=== PATIENT | male | born 1945 | race Caucasian/White ===

== ENCOUNTER 2020-05-25 21:10 | Emergency (ER) | payer MEDICARE, SELFPAY ==
[2020-05-25] VITALS (7 sets, daily range): BP systolic 122–163; BP diastolic 87–100; PULSE 58–66; RESP 18–20; TEMP 36.9; O2SAT 94–98
--- NOTE | 2020-05-25 21:28 | XRR_ITS ---
PROCEDURE INFORMATION: Exam: XR Chest, 1 View Exam date and time: 05/25/2020 10:01 PM Age: 74 years old Clinical indication: Pain; Chest pressure; Additional info: Cp TECHNIQUE: Imaging protocol: XR of the chest Views: 1 view. COMPARISON: No relevant prior studies available. FINDINGS: Lungs: Unremarkable. No consolidation. Pleural space: Unremarkable. No pleural effusion. No pneumothorax. Heart/Mediastinum: There is some calcified left AP window lymph nodes in keeping with old granulomatous disease.. No cardiomegaly. Bones/joints: Unremarkable. XR/XR chest 1V portable [id number] IMPRESSION: No acute findings.
--- NOTE | 2020-05-25 21:28 | ECG_ITS ---
[facility] Test Date: 2020-05-25 Pat Name: Dwight Bolden Department: Room: Gender: Male Security Clerk: : 1945 Requested By: Dean Cardoso Order Number: [id number] Sunny MD: Nestor Lynn M.D. Measurements Intervals [place] Rate: 64 P: 11 [place]: 145 QRS: 11 QRSD: 82 T: 120 QT: 362 QTc: 375 Interpretive Statements SINUS RHYTHM NONSPECIFIC ST & T-WAVE ABNORMALITY No previous ECG available for comparison Electronically Signed On 05-26-2020 20:26:19 CDT by Nestor Lynn M.D. [email or web address] hospital[facility]com[facility].[employer]/store/NU/[id number] f
[2020-05-25 21:58] LABS: Basophils # 0.1 10^3/uL (0.0-0.1); Eosinophils # 0.3 10^3/uL (0.0-0.8); Eosinophils % 3.4 %; Hematocrit 44.7 % (42.0-52.0); Lymphocytes # 1.8 10^3/uL (0.8-4.8); Lymphocytes % 22.2 %; Mean Corpuscular HGB Conc 33.6 g/dL (30.0-36.0); Mean Corpuscular Hemoglobin 29.8 pg (28.0-34.0); Mean Corpuscular Volume 88.7 fL (80-94); Mean Platelet Volume 9.3 fL (7.4-10.4); Monocytes # 0.9 10^3/uL (0.2-0.9); Monocytes % 10.6 %; Neutrophils # 5.09 10^3/uL (1.8-7.7); Neutrophils % 62.6 %; Nucleated Red Blood Cells % 0 %; Platelet Count 299 10^3/cmm (130-400); Red Blood Count 5.04 10^6/uL (4.1-5.3); White Blood Count 8.1 10^3/uL (4.0-10.0)
[2020-05-25] MEDS: ondansetron 2 mg/ML SDV 2 mL 4 MG IVP (22:12)
[2020-05-25] MEDS: aspirin 81 mg Chew Tablet 324 MG PO (22:12)
[2020-05-25] MEDS: lidocaine 2% viscous 15 ML, aluminum-mag hydrox-simethicon 30 ML, sucralfate oral liq 1 GM PO (22:12)
[2020-05-25 22:19] LABS: Troponin(5th) Baseline 8 ng/L (0-15)
[2020-05-25 22:26] LABS: Alanine Aminotransferase 23 U/L (0-41); Albumin Level 4.7 g/dL (3.5-5.2); Alkaline Phosphatase 153 IU/L (40-130); Anion Gap 17.2 (5-19); Aspartate Amino Transferase 27 U/L (0-40); Blood Urea Nitrogen 17 mg/dL (8-23); Calcium 9.5 mg/dL (8.5-10.5); Carbon Dioxide 23 mmol/L (22-29); Chloride 103 mmol/L (98-107); Globulin 1.9 g/dL (1.3-4.6); Glucose 118 mg/dL (65-115); NT Pro B Type Natriuretic Pept 5 pg/mL (0-125); Osmolality Calculated 291 mOsm/kg (285-295); Potassium 4.2 mmol/L (3.5-5.1); Sodium 139 mmol/L (136-145); Total Bilirubin 0.2 mg/dL (0.15-1.2); Total Protein 6.6 g/dL (6.6-8.7)
[2020-05-25 22:56] LABS: Add Urine Culture? No; Add Urine Microscopic? YES; Bacteria Urine TRACE /hpf; Bilirubin Urine Neg (Negative); Blood Urine 2+ (Negative); Glucose Urine UA Norm (Normal); Ketones Urine Negative (Negative); Leukocyte Esterase Urine Negative (Negative); Nitrate Urine Negative (Negative); Protein Urine Neg (Negative); Urine Appearance Clear (CLEAR); Urine Color Yellow (Yellow); Urobilinogen Urine Norm (Negative); pH Urine 6.5 (5-7)
--- NOTE | 2020-05-25 22:59 | W.ED.CHESTPA ---
HPI - Chest Pain General: Chief Complaint: Chest Pain Stated Complaint: SOB Time Seen by Provider: 05/25/20 21:26 History of Present Illness: HPI narrative: 74-year-old male with no prior history of coronary disease. He presents with chest discomfort, that started sometime after eating some fried fish. He notes his symptoms have improved since arriving at the hospital, but he still feeling some tightness in his mid chest. He states that he feels like he cannot get a deep breath, but is not overly short of breath. He has had no fever, no cough. He was mildly nauseated, and this is passed. No vomiting. MD complaint: chest discomfort Onset (ago): hour(s) Timing of current episode: constant and still present (But improving) Prior episodes: No Onset: during rest Pain location: substernal Pain radiation: none Quality: tightness and heaviness Relieving factors: nothing Exacerbating factors: nothing Associated symptoms: Reports dyspnea and nausea; Deny abdominal pain, diaphoresis, fever(s), palpitations or vomiting Review of Systems Const: Denies: fever(s) or diaphoresis Eyes: Denies: change in vision ENMT: Reports: post nasal drip; Denies: odynophagia, swelling of lips/tongue, change in hearing, epistaxis or sinus pain Card: Reports: chest pain; Denies: palpitations, irregular heart rhythm, swelling of feet/ankles, dyspnea on exertion or orthopnea Resp: Reports: dyspnea; Denies: productive cough, non-productive cough or wheezing GI: Reports: nausea; Denies: abdominal pain or vomiting : Denies: difficulty urinating, dysuria or hematuria Musc: Denies: neck pain or back pain Skin/Breast: Denies: pruritus or erythema Neuro: Denies: headache(s), dizziness, vertigo or confusion Psych: Denies: anxiety Physical Exam Const: GENERAL APPEARANCE: well developed ORIENTATION/CONSCIOUSNESS: Yes oriented to person, Yes oriented to place and Yes oriented to time HENMT: COMMON NORMALS: normocephalic, external ears normal and Normal external nose present HEAD & SCALP: normocephalic FACE & SINUS: normal facial exam NOSE: Normal external nose present and No nasal discharge present EXTERNAL EAR: Yes external ears normal Eye: COMMON NORMALS: Equal, round and reactive pupils present, EOMs intact bilaterally and conjunctivae normal EYELID: eyelids normal CONJUNCTIVA: Yes conjunctivae normal PUPIL: Yes Equal, round and reactive pupils present Neck/C-Spine: GENERAL: No tracheal deviation Chest: COMMONS NORMALS: normal inspection of the chest CHEST: No tenderness Resp: COMMON NORMALS: clear to auscultation bilaterally EFFORT & INSPECTION: No tachypneic, No respiratory distress, No retractions, No uses accessory muscles and No tracheal deviation AUSCULTATION: clear to auscultation bilaterally, no rhonchi, no wheezes and lung sounds not diminished Cardio: COMMON NORMALS: regular rate and regular rhythm RATE: regular rate RHYTHM: regular rhythm HEART SOUNDS: no murmurs PERIPHERAL PULSES: radial pulses present GI: INSPECTION: No abdominal distension AUSCULTATION: No Hyperactive bowel sounds present and No Hypoactive bowel sounds present PALPATION: No Guarding due to palpation present (GI) and No Rigid due to palpation PERCUSSION: no dullness to percussion and no tympanic to percussion Neuro: SENSORIUM/ORIENTATION: Yes oriented to person, Yes oriented to place and Yes oriented to time Psych: COMMON NORMALS: mental status grossly normal Skin: COMMON NORMALS: no rashes or lesions noted GENERAL SKIN EXAM: no rashes or lesions noted Course Reevaluation(s): Reevaluation #1: Reevaluation, the patient's symptoms have completely resolved. He like to go home. His second troponin is not been drawn yet. His EKG has been done. It shows sinus bradycardia with a normal axis, and no acute ST changes. The rate is 56. With resolution of his symptoms, he would like to go home. He was warned of the risk of going home before obtaining the second troponin, which includes missing an acute coronary syndrome, and the potential for serious harm or by doing so. He understands and agrees. Perfectly capable of making that decision. Will allow him home. Time: 23:35 Vital Signs: Vital signs: Vital Signs Temperature 98.4 F 05/25/20 21:14 Pulse Rate 59 L 05/25/20 22:30 Respiratory Rate 18 05/25/20 22:30 Blood Pressure 128/89 05/25/20 22:30 Pulse Oximetry 94 05/25/20 22:30 MDM - Chest Pain MDM Narrative: Medical decision making narrative: 74-year-old male presenting with chest discomfort that is now resolved. His EKG shows a sinus rhythm with a rate of 65. His axis is normal. There are no acute ST changes. His chest x-ray is negative. His labs are normal. His first troponin is 8. GI cocktail was equivocal, as his symptoms had resolved by the time he got it. The patient was offered COVID-19 testing, and refused. Lab Data: Labs: Lab Results 05/25/20 05/25/20 05/25/20 Range/Units 21:50 21:50 21:50 WBC 8.1 (4.0-10.0) 10^3/ uL RBC 5.04 (4.1-5.3) 10^6/u L Hgb 15.0 (11.7-16.6) g/dL Hct 44.7 (42.0-52.0) % MCV 88.7 (80-94) fL MCH 29.8 (28.0-34.0) pg MCHC 33.6 (30.0-36.0) g/dL RDW 12.0 L (12.1-15.1) % Plt Count 299 (130-400) 10^3/c mm MPV 9.3 (7.4-10.4) fL Neut % (Auto) 62.6 % Lymph % (Auto) 22.2 % [place] % (Auto) 10.6 % Eos % (Auto) 3.4 % Baso % (Auto) 1.0 % Neut # (Auto) 5.09 (1.8-7.7) 10^3/u L Lymph # (Auto) 1.8 (0.8-4.8) 10^3/u L [place] # (Auto) 0.9 (0.2-0.9) 10^3/u L Eos # (Auto) 0.3 (0.0-0.8) 10^3/u L Baso # (Auto) 0.1 (0.0-0.1) 10^3/u L Nucleated RBC % (a uto) 0 % Nucleated RBCs # 0.0 /100WBC Sodium 139 (136-145) mmol/L Potassium 4.2 (3.5-5.1) mmol/L Chloride 103 (98-107) mmol/L Carbon Dioxide 23 (22-29) mmol/L Anion Gap 17.2 (5-19) BUN 17 (8-23) mg/dL Creatinine 1.1 (0.7-1.2) mg/dL GFR Calculation Not Reportable Glucose 118 H (65-115) mg/dL Calculated Osmolal ity 291 (285-295) mOsm/k g Calcium 9.5 (8.5-10.5) mg/dL Total Bilirubin 0.2 (0.15-1.2) mg/dL AST 27 (0-40) U/L ALT 23 (0-41) U/L Alkaline Phosphata se 153 H (40-130) IU/L Troponin T Baselin e 8 (0-15) ng/L NT-Pro-B Natriuret Pep 5 (0-125) pg/mL Total Protein 6.6 (6.6-8.7) g/dL Albumin 4.7 (3.5-5.2) g/dL Globulin 1.9 (1.3-4.6) g/dL Urine Color (Yellow) Urine Appearance (CLEAR) Urine pH (5-7) Ur Specific Gravit y (1.005-1.030) Urine Protein (Negative) Urine Glucose (UA) (Normal) Urine Ketones (Negative) Urine Blood (Negative) Urine Nitrate (Negative) Urine Bilirubin (Negative) Urine Urobilinogen (Negative) mg/dL Ur Leukocyte Daja ase (Negative) Urine RBC (0-2) /hpf Urine WBC (0-5) /hpf Ur Squamous Epith Cells (0-5) /hpf Amorphous Sediment Urine Bacteria (NONE) /hpf 1003/20 Range/Units 22:20 WBC (4.0-10.0) 10^3/ uL RBC (4.1-5.3) 10^6/u L Hgb (11.7-16.6) g/dL Hct (42.0-52.0) % MCV (80-94) fL MCH (28.0-34.0) pg MCHC (30.0-36.0) g/dL RDW (12.1-15.1) % Plt Count (130-400) 10^3/c mm MPV (7.4-10.4) fL Neut % (Auto) % Lymph % (Auto) % [place] % (Auto) % Eos % (Auto) % Baso % (Auto) % Neut # (Auto) (1.8-7.7) 10^3/u L Lymph # (Auto) (0.8-4.8) 10^3/u L [place] # (Auto) (0.2-0.9) 10^3/u L Eos # (Auto) (0.0-0.8) 10^3/u L Baso # (Auto) (0.0-0.1) 10^3/u L Nucleated RBC % (a uto) % Nucleated RBCs # /100WBC Sodium (136-145) mmol/L Potassium (3.5-5.1) mmol/L Chloride (98-107) mmol/L Carbon Dioxide (22-29) mmol/L Anion Gap (5-19) BUN (8-23) mg/dL Creatinine (0.7-1.2) mg/dL GFR Calculation Glucose (65-115) mg/dL Calculated Osmolal ity (285-295) mOsm/k g Calcium (8.5-10.5) mg/dL Total Bilirubin (0.15-1.2) mg/dL AST (0-40) U/L ALT (0-41) U/L Alkaline Phosphata se (40-130) IU/L Troponin T Baselin e (0-15) ng/L NT-Pro-B Natriuret Pep (0-125) pg/mL Total Protein (6.6-8.7) g/dL Albumin (3.5-5.2) g/dL Globulin (1.3-4.6) g/dL Urine Color Yellow (Yellow) Urine Appearance Clear (CLEAR) Urine pH 6.5 (5-7) Ur Specific Gravit y 1.010 (1.005-1.030) Urine Protein Neg (Negative) Urine Glucose (UA) Norm (Normal) Urine Ketones Negative (Negative) Urine Blood 2+ H (Negative) Urine Nitrate Negative (Negative) Urine Bilirubin Neg (Negative) Urine Urobilinogen Norm (Negative) mg/dL Ur Leukocyte Daja ase Negative (Negative) Urine RBC 5-10 H (0-2) /hpf Urine WBC None (0-5) /hpf Ur Squamous Epith Cells None (0-5) /hpf Amorphous Sediment Not Reportable Urine Bacteria Trace (NONE) /hpf Discharge Plan Discharge Patient Disposition: Home Clinical Impression: Chest pain due to GERD Chest pain Qualifiers: Chest pain type: unspecified Qualified Code(s): R07.9 - Chest pain, unspecified Condition: Stable Discharge Orders: Discharge Order (Routine); Ordered 05/25/20 Ordered By: Dean Mora Referrals: Smiley Aburto FNP [Primary Care Provider] - 4-7 days Discharge Diet: Advance as tolerated Discharge Activity: Increase activity as tolerated Patient Instructions: Chest Pain (ED), Esophageal Spasm (ED) Activity Restrictions/Additional Instructions: Return to the emergency department for return of chest pain, development of shortness of breath, fever greater than 100, cough, other concerning symptoms. Coding Level of Care Code ED Staff Electronic Warfare Officer for Chg Fwd Exam Comprehensive
--- NOTE | 2020-05-25 23:14 | PC.NURSE ---
during med adm, pt states he will refuse COVID swab screening. notified
--- NOTE | 2020-05-25 23:28 | ECG_ITS ---
[facility] Test Date: 2020-05-25 Pat Name: Dwight Bolden Department: Room: Gender: Male Clinical Genetics Laboratory Chief: : 1945 Requested By: Dean Cardoso Order Number: [id number] Sunny MD: Nestor Lynn M.D. Measurements Intervals [place] Rate: 56 P: 22 [place]: 148 QRS: 26 QRSD: 89 T: 141 QT: 407 QTc: 394 Interpretive Statements SINUS BRADYCARDIA NONSPECIFIC ST & T-WAVE ABNORMALITY Compared to ECG 05/25/2020 21:19:38 Sinus rhythm no longer present T-wave abnormality still present Electronically Signed On 05-27-2020 17:39:58 CDT by Nestor Lynn M.D. [email or web address].[employer]/store/NU/[id number] f
--- NOTE | 2020-05-26 00:01 | PC.NURSE ---
i agree with this assessment
== END 2020-05-26 00:01 | disposition home or self-care (01) ==
PROVIDERS: Emergency Provider Emergency Medicine; PCP Nurse Practitioner Family
DX: K21.9 Gastro-esophageal reflux disease without esophagitis (principal)
CPT/HCPCS: 12345; 71045; 80053; 81001; 83880; 84484; 85025; 93005; 96374; 99283; 99284; J2405

== ENCOUNTER 2023-12-05 19:19 | Emergency (ER) | payer MEDICARE, SELFPAY ==
[2023-12-05] VITALS (8 sets, daily range): BP systolic 135–171; BP diastolic 86–92; PULSE 63–72; RESP 16–24; TEMP 36.8; O2SAT 93–95; BMI 30.9
--- NOTE | 2023-12-05 19:30 | XRR_ITS ---
PROCEDURE INFORMATION: Exam: XR Chest Exam date and time: 12/05/2023 7:37 PM Age: 78 years old Clinical indication: Shortness of breath TECHNIQUE: Imaging protocol: Radiologic exam of the chest. Views: 1 view. COMPARISON: CR XR chest 1V portable [id number] 05/25/2020 9:52 PM FINDINGS: Lungs: No focal consolidation. Pleural spaces: No evidence of pneumothorax. No evidence of pleural effusion. Heart/Mediastinum: Cardiomediastinal silhouette is within normal limits. Bones/joints: No evidence of acute osseous abnormality. XR/XR chest 1V [id number] IMPRESSION: 1. No acute cardiopulmonary abnormality.
--- NOTE | 2023-12-05 19:32 | ECG_ITS ---
[facility] Test Date: 2023-12-05 Pat Name: Dwight Bolden Department: Room: Gender: Male Client Services Manager: : 1945 Requested By: Mary Ellen Ambrose Order Number: [id number] Sunny MD: Andrade Ferguson M.D. Measurements Intervals [place] Rate: 72 P: 24 AL: 149 QRS: 34 QRSD: 86 T: 120 QT: 375 QTc: 413 Interpretive Statements SINUS RHYTHM WITH SINUS ARRHYTHMIA NONSPECIFIC ST & T-WAVE ABNORMALITY Compared to ECG 05/25/2020 23:26:07 Sinus bradycardia no longer present T-wave abnormality still present Electronically Signed On 12-05-2023 20:55:27 CDT by Andrade Ferguson M.D. [email or web address] [email or web address] hospital.[employer]/store/NU/[id number] f
--- NOTE | 2023-12-05 19:46 | ED_ITS ---
HPI - Chest Pain 2 General: Chief Complaint: Chest Pain Stated Complaint: SOB Time Seen by Provider: 12/05/23 19:27 History of Present Illness: 78-year-old man who says he has no major medical problems who presents the emergency room with chest tightness and shortness of breath. He says this started just after he had been working downstairs with some chemicals. He thinks this may have started it. He feels better now. He has had no recent cough or fevers. No coronary history. Review of Systems 2 Narrative: Constitutional symptoms: Negative except as documented in HPI. Skin symptoms: Negative except as documented in HPI. Eye symptoms: Negative except as documented in HPI. ENMT symptoms: Negative except as documented in HPI. Respiratory symptoms: Negative except as documented in HPI. Cardiovascular symptoms: Negative except as documented in HPI. Gastrointestinal symptoms: Negative except as documented in HPI. Genitourinary symptoms: Negative except as documented in HPI. Musculoskeletal symptoms: Negative except as documented in HPI. Neurologic symptoms: Negative except as documented in HPI. Psychiatric symptoms: Negative except as documented in HPI. Endocrine symptoms: Negative except as documented in HPI. Physical Exam 2 Narrative: EXAM NARRATIVE: General: Alert, no acute distress. Skin: Warm, dry. Head: Normocephalic, atraumatic. Neck: Supple, trachea midline. Eye: Extraocular movements are intact. Ears, nose, mouth and throat: mucosa moist. Cardiovascular: Regular, Normal peripheral perfusion. Respiratory: Lungs are clear to auscultation, respirations are non-labored, breath sounds are equal, Symmetrical chest wall expansion. Gastrointestinal: Soft, Nontender, Non distended, Normal bowel sounds. Musculoskeletal: Normal ROM, no deformity. Neurological: Alert and oriented, No focal neurological deficit observed. Psychiatric: Cooperative, appropriate mood & affect. Course 2 Vital Signs: Vital signs: Vital Signs Temperature 98.2 F 12/05/23 19:27 Pulse Rate 70 12/05/23 20:02 Respiratory Rate 17 12/05/23 20:02 Blood Pressure 135/86 12/05/23 20:02 Pulse Oximetry 94 12/05/23 20:02 Oxygen Delivery Me thod Room Air 12/05/23 20:02 MDM - Chest Pain Medical Decision Making Differential diagnosis for patient with chest pain includes but is not limited to and based on the above HPI, review of systems and physical exam: Pneumonia. unstable angina. angina. Acute coronary syndrome / [place]. Pulmonary embolism. Costochondritis / musculoskeletal. Pleurisy. Pericarditis. Esophageal spasm. Pancreatis. Cholecystitis. Workup: Lab work, chest X-ray and EKG ordered to evaluate, rule in and rule out above pathologies. Lab Review: Laboratory results were reviewed and interpreted by myself the emergency room physician. Patient has been completely asymptomatic. Lab work and troponin is negative. Chest x-ray: No acute process. No infiltrate. No pneumothorax. No cardiomegaly. This was reviewed and interpreted by myself the ER physician. EKG: Time 1931 rate 72 normal sinus rhythm, No ST-T changes, no ectopy, normal NV & QRS intervals, This was reviewed and interpreted by myself the ER physician at 1933. I reviewed the patient's medical record. Reexamination: Patient says he feels much better. He thinks it was just secondary to exposure to the chemicals. I agree you may have had a little reactive airway event. No increased work of breathing. No altered mental status. Lab Data 12/05/23 19:50 12/05/23 19:50 Radiology Impressions Chest X-Ray 12/05/23 19:30 IMPRESSION: 1. No acute cardiopulmonary abnormality. Laboratory Results WBC 8.93 10^3/uL (3.29-11.43) 12/05/23 19:50 RBC 4.88 10^6/uL (3.85-5.65) 12/05/23 19:50 Hgb 14.80 g/dL (11.27-16.99) 12/05/23 19:50 Hct 42.5 % (37-53) 12/05/23 19:50 MCV 87.1 fl (82-101) 12/05/23 19:50 MCH 30.3 pg (27-33) 12/05/23 19:50 MCHC 34.8 g/dL (30-55) 12/05/23 19:50 RDW 12.3 % (12.1-15.1) 12/05/23 19:50 Plt Count 289 10^3/cmm (157-399) 12/05/23 19:50 MPV 9.2 fL (7.4-10.4) 12/05/23 19:50 Neut % (Auto) 66.4 % 12/05/23 19:50 Lymph % (Auto) 22.2 % 12/05/23 19:50 [place] % (Auto) 9.1 % 12/05/23 19:50 Eos % (Auto) 1.3 % 12/05/23 19:50 Baso % (Auto) 0.7 % 12/05/23 19:50 Neut # (Auto) 5.93 10^3/uL (1.8-7.7) 12/05/23 19:50 Lymph # (Auto) 2.0 10^3/uL (0.8-4.8) 12/05/23 19:50 [place] # (Auto) 0.8 10^3/uL (0.2-0.9) 12/05/23 19:50 Eos # (Auto) 0.1 10^3/uL (0.0-0.8) 12/05/23 19:50 Baso # (Auto) 0.1 10^3/uL (0.0-0.1) 12/05/23 19:50 Nucleated RBC % (auto) 0 % 12/05/23 19:50 Nucleated RBCs # 0.0 /100WBC 12/05/23 19:50 Sodium 139 mmol/L (136-145) 12/05/23 19:50 Potassium 4.3 mmol/L (3.5-5.1) 12/05/23 19:50 Chloride 104 mmol/L (98-107) 12/05/23 19:50 Carbon Dioxide 24 mmol/L (22-29) 12/05/23 19:50 Anion Gap 15.3 (5-19) 12/05/23 19:50 BUN 13 mg/dL (8-23) 12/05/23 19:50 Creatinine 1.0 mg/dL (0.7-1.2) 12/05/23 19:50 GFR Calculation Not Reportable 12/05/23 19:50 Glucose 106 mg/dL (65-115) 12/05/23 19:50 Calculated Osmolality 289 mOsm/kg (285-295) 12/05/23 19:50 Calcium 9.7 mg/dL (8.5-10.5) 12/05/23 19:50 Troponin T Baseline 12 ng/L (0-15) 12/05/23 19:50 Influenza Type A Ag negative (Negative) 12/05/23 20:12 Influenza Type B Ag negative (Negative) 12/05/23 20:12 SARS-CoV-2 Ag (Rapid) negative (Negative) 12/05/23 20:12 All radiology interpretation(s) finalized by discharge Other Data Assessment and plan: - Discharged home - Discussed plan with patient. Answered any questions. - Evaluation and treatment of this problem were appropriate in the emergency setting. Discharge Plan Discharge Patient Disposition: Home Clinical Impression: Atypical chest pain Condition: Stable Discharge Orders: Discharge ED (Routine); Ordered 12/05/23 Ordered By: Mary Ellen Funk Discharge Diet: Usual diet Discharge Activity: Resume usual activity Patient Instructions: Opioid Safety, Pain Management Coding Level of Care Code ED Remote Ruby On Rails Developer for Preston Shaver
[2023-12-05 20:14] LABS: Basophils # 0.1 10^3/uL (0.0-0.1); Basophils % 0.7 %; Eosinophils # 0.1 10^3/uL (0.0-0.8); Eosinophils % 1.3 %; Hematocrit 42.5 % (37-53); Lymphocytes % 22.2 %; Mean Corpuscular HGB Conc 34.8 g/dL (30-55); Mean Corpuscular Hemoglobin 30.3 pg (27-33); Mean Corpuscular Volume 87.1 fl (82-101); Mean Platelet Volume 9.2 fL (7.4-10.4); Monocytes # 0.8 10^3/uL (0.2-0.9); Monocytes % 9.1 %; Neutrophils # 5.93 10^3/uL (1.8-7.7); Neutrophils % 66.4 %; Nucleated Red Blood Cells % 0 %; Platelet Count 289 10^3/cmm (157-399); Red Blood Count 4.88 10^6/uL (3.85-5.65); Red Cell Distribution Width 12.3 % (12.1-15.1); White Blood Count 8.93 10^3/uL (3.29-11.43)
[2023-12-05 20:31] LABS: Anion Gap 15.3 (5-19); Blood Urea Nitrogen 13 mg/dL (8-23); Calcium 9.7 mg/dL (8.5-10.5); Carbon Dioxide 24 mmol/L (22-29); Chloride 104 mmol/L (98-107); Creatinine Clr Calc Pharmacy 60.6034; Glucose 106 mg/dL (65-115); Osmolality Calculated 289 mOsm/kg (285-295); Potassium 4.3 mmol/L (3.5-5.1); Sodium 139 mmol/L (136-145)
[2023-12-05 20:32] LABS: Troponin(5th) Baseline 12 ng/L (0-15)
[2023-12-05 20:33] LABS: Influenza A by IFA negative (Negative); Influenza B by IFA negative (Negative); SARS Covid-2 Antigen negative (Negative)
--- NOTE | 2023-12-05 21:31 | ECG_ITS ---
[facility] Test Date: 2023-12-06 Pat Name: Dwight Bolden Department: Room: Gender: Male Bilingual Patient Support Caseworker: : 1945 Requested By: Mary Ellen Ambrose Order Number: [id number] Sunny MD: Andrade Ferguson M.D. Measurements Intervals [place] Rate: 70 P: 23 [place]: 150 QRS: 27 QRSD: 86 T: 120 QT: 353 QTc: 381 Interpretive Statements SINUS RHYTHM ST DEVIATION AND MODERATE T-WAVE ABNORMALITY, CONSIDER LATERAL ISCHEMIA [-0.1+ mV T-WAVE IN I/aVL/V5/V6] Compared to ECG 12/05/2023 19:32:17 Possible ischemia now present Sinus arrhythmia no longer present T-wave abnormality still present Electronically Signed On 12-06-2023 19:34:01 CDT by Andrade Ferguson M.D. [id number]
== END 2023-12-05 21:35 | disposition home or self-care (01) ==
PROVIDERS: Emergency Provider Emergency Medicine
DX: R07.89 Other chest pain (principal); Z11.52 Encounter for screening for COVID-19
CPT/HCPCS: 71045; 80048; 84484; 85025; 87426; 87804; 93005; 99285

== ENCOUNTER 2023-12-06 00:06 | Emergency (ER) | payer MEDICARE, SELFPAY ==
[2023-12-06] VITALS (9 sets, daily range): BP systolic 128–175; BP diastolic 80–96; PULSE 53–72; RESP 13–19; TEMP 36.8; O2SAT 92–96; BMI 30.9
--- NOTE | 2023-12-06 02:08 | W.ED.SOB ---
HPI - SOB/Dyspnea General: Chief Complaint: Shortness of Breath/Dyspnea Stated Complaint: head hurts sob weak was here earlier worse Time Seen by Provider: 12/06/23 01:34 History of Present Illness: HPI Narrative: 78-year-old male who is here in the ER a few hours ago and evaluated for chest discomfort and shortness of breath. He feels improved on returning home, but a few hours later began to have shortness of breath again. He thought he should be better so he came back for reevaluation. Associated symptoms: Reports chest pain; Deny abdominal pain, fever(s) or vomiting Review of Systems Const: Denies: fever(s) ENMT: Denies: throat pain Card: Reports: chest pain Resp: Reports: dyspnea and non-productive cough GI: Denies: abdominal pain or vomiting Physical Exam Const: COMMON NORMALS: no acute distress GENERAL APPEARANCE: cooperative; not ill appearing and not frail appearing HENMT: COMMON NORMALS: normocephalic, atraumatic and Normal external nose present HEAD & SCALP: normocephalic and atraumatic FACE & SINUS: normal facial exam and face symmetric NOSE: Normal external nose present Eye: COMMON NORMALS: Equal, round and reactive pupils present and EOMs intact bilaterally PUPIL: Yes Equal, round and reactive pupils present Neck/C-Spine: GENERAL: Yes trachea midline Chest: CHEST: Yes Symmetrical chest wall rise Resp: COMMON NORMALS: normal respiratory effort, No retractions, No use of accessory muscles and clear to auscultation bilaterally AUSCULTATION: clear to auscultation bilaterally Cardio: COMMON NORMALS: regular rhythm RATE: bradycardic RHYTHM: regular rhythm GI: COMMON NORMALS: Normal to inspection, nondistended, normoactive bowel sounds present Extremity: COMMON NORMALS: no pedal edema Neuro: MARLENI COMA SCALE: document GCS findings Butler coma scale eye opening: Spontaneous Marleni coma scale verbal response: Orientated Butler coma scale motor response: Obey commands Butler coma scale total score: 15 SENSORY EXAM: Yes extremities (intact) Psych: COMMON NORMALS: speech normal SPEECH: Yes normal speech Skin: COMMON NORMALS: no rashes or lesions noted GENERAL SKIN EXAM: no rashes or lesions noted Course Vital Signs: Vital signs: Vital Signs Temperature 98.2 F 12/06/23 00:07 Pulse Rate 62 12/06/23 04:08 Respiratory Rate 18 12/06/23 04:08 Blood Pressure 128/90 12/06/23 04:08 Pulse Oximetry 94 12/06/23 04:08 Oxygen Delivery Me thod Room Air 12/06/23 02:16 MDM - SOB/Dyspnea Medical Decision Making The patient has had a cough. He relates that he was using rubbing compound on a car before this episode started last evening and believes he may have inhaled some of the product fumes. He complains of a headache, and some shortness of breath. He is improved after breathing treatment and Solu-Medrol here. Troponin is redrawn, and is not significantly elevated over his baseline. BNP is nondetectable. Other laboratory was completed prior. He will be treated for an acute bronchitis/pneumonitis possibly related to viral or bacterial infection, also possibly related to inhalational injury. He will be placed on steroids, antibiotics, and inhaler. He knows to return for worsening symptoms. Lab Data Labs/Radiology: Laboratory Results Troponin T 5th Gen ng/L 17 ng/L (0-15) H 12/06/23 02:08 NT-Pro-B Natriuret Pep < 36 pg/mL (0-450) 12/06/23 02:08 All radiology interpretation(s) finalized by discharge Discharge Plan Discharge Patient Disposition: Home Clinical Impression: Atypical chest pain, Acute bronchitis Condition: Stable Prescriptions: New Medrol (Khanh) 4 mg tablets,dose pack See Rx Instructions .ROUTE .COMPLEX Qty: 21 0RF Rx Instructions: orally per package directions albuterol sulfate 90 mcg/actuation HFA aerosol inhaler 2 inh INHALATION Q4H PRN (Reason: shortness of breath or wheezing) Qty: 6.7 1RF azithromycin 250 mg tablet See Rx Instructions .ROUTE .COMPLEX Qty: 6 0RF Rx Instructions: For 250 mg dose pack: take 500 mg today (day 1), then 250 mg for 4 days (days 2-5) Discharge Orders: Discharge ED (Routine); Ordered 12/06/23 Ordered By: Dean Mora Referrals: Chong Jones [Primary Care Provider] - 1-3 days Patient Instructions: Acute Bronchitis (ED), Chest Wall Pain (ED), Opioid Safety, Pain Management Activity Restrictions/Additional Instructions: Use the inhaler prescribed every 4 hours while awake for the next 48 hours whether you feel you needed or not, then as needed following that. Other medications as directed. Return for worsening pain, worsening shortness of breath despite treatment. Fever greater than 100 despite 2-3 doses of antibiotics, any other concerning symptoms. See your doctor this week. Coding Level of Care Code ED Workforce Development Program Director for [facility]
[2023-12-06] MEDS: methylPREDNISolone sod succ 125 mg/2 mL INJ IV (02:13)
[2023-12-06] MEDS: ipratropium 0.5 mg/2.5 mL Neb INHALATION (02:16)
[2023-12-06 02:34] LABS: Troponin T (5th) Once 17 ng/L (0-15)
[2023-12-06 02:45] LABS: NT Pro B Type Natriuretic Pept < 36 pg/mL (0-450)
[2023-12-06] MEDS: ondansetron 2 mg/ML SDV 2 mL 4 MG IVP (03:20)
[2023-12-06] MEDS: ketorolac 30 mg/mL INJ IVP (03:20)
[2023-12-06] MEDS: morphine 4 mg/mL SDV 1 mL 2 MG IVP (03:21)
== END 2023-12-06 04:10 | disposition home or self-care (01) ==
PROVIDERS: Emergency Provider Emergency Medicine; PCP Family Medicine
DX: R07.89 Other chest pain (principal); J20.9 Acute bronchitis, unspecified
CPT/HCPCS: 83880; 84484; 94640; 96374; 96375; 99284; J1885; J2270; J2405; J2919; J7644